=== PATIENT | male | born 1990 | race Caucasian/White ===

== ENCOUNTER 2019-08-14 17:53 | Emergency (ER) | payer OTHER ==
[~2019-08-14] VITALS: Ht 177.8 cm; Wt 88.5 kg
[2019-08-14] MEDS ORDERED: SEROQUEL25 MG (18:01)
[2019-08-14] MEDS ORDERED: KETO10TA2 PO (18:44)
[2019-08-14] MEDS ORDERED: ULTRACET PO (18:44)
== END 2019-08-14 20:41 | disposition home or self-care (01) ==
LOC: ER 17:53
DX: S82.61XA Displaced fracture of lateral malleolus of right fibula, initial encounter for closed fracture (principal); X50.9XXA Other and unspecified overexertion or strenuous movements or postures, initial encounter; Y93.67 Activity, basketball; Y92.89 Other specified places as the place of occurrence of the external cause